=== PATIENT | male | born 1990 | race Caucasian/White ===

== ENCOUNTER 2017-02-10 12:22 | Inpatient (IN) | payer OTHER ==
[2017-02-10 13:51] VITALS: BMI 24.4
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
[2017-02-10] MEDS ORDERED: LOPERAMIDE HCL 2 MG CAPSULE PO PRN (18:12)
[2017-02-10] MEDS ORDERED: diphenhydrAMINE HCL 50 MG CAPSULE PO PRN (18:12)
[2017-02-10] MEDS ORDERED: chlordiazePOXIDE HCL 25 MG CAPSULE PO ONE (18:12)
[2017-02-10] MEDS ORDERED: NICOTINE POLACRILEX 2 MG GUM BC PRN (18:12)
[2017-02-10] MEDS ORDERED: METHADONE HCL 10 MG TABLET (FOR DETOX USE ONLY) PO ONE ×2 (18:12→23:00)
[2017-02-10] MEDS ORDERED: IBUPROFEN 400 MG TABLET (FP) PO PRN (18:12)
[2017-02-10] MEDS ORDERED: MAGNESIUM HYDROX 2400MG/30ML ORAL SUSPENSION 30 ML CUP PO PRN (18:12)
[2017-02-10] MEDS ORDERED: chlordiazePOXIDE HCL 25 MG CAPSULE PO PRN (18:12)
[2017-02-10] MEDS ORDERED: MAG HYDROX/AL HYDROX/SIMETH 30 ML UNIT-DOSE CUP PO PRN (18:12)
[2017-02-10] MEDS ORDERED: MAGNESIUM CITRATE 300 ML BOTTLE PO PRN (18:12)
[2017-02-10] MEDS ORDERED: hydrOXYzine PAMOATE 50 MG CAPSULE (FP) PO PRN (18:12)
[2017-02-10] MEDS ORDERED: guaiFENesin/D-METHORPHAN HB 10 ML UNIT-DOSE CUPS PO PRN (18:12)
[2017-02-10] MEDS ORDERED: MENTHOL/PHENOL 1 EACH UD MM PRN (18:12)
[2017-02-10] MEDS ORDERED: P-EPHED 60MG/TRIPROLIDI 2.5MG TABLET PO PRN (18:12)
[2017-02-10] MEDS ORDERED: ACETAMINOPHEN 325 MG TABLET (FP) PO PRN (18:12)
[2017-02-10] MEDS: NICOTINE 21 MG/24 HOURS TOPICAL PATCH TD SCH (19:48)
[2017-02-10 21:57] LABS: URINE APPEARANCE CLEAR; URINE BILIRUBIN NEGATIVE (NEGATIVE); URINE BLOOD NEGATIVE (NEGATIVE); URINE COLOR LT. YELLOW; URINE GLUCOSE (UA) NEGATIVE (NEGATIVE); URINE KETONE TRACE (NEGATIVE); URINE LEUK ESTERASE NEGATIVE (NEGATIVE); URINE NITRITE NEGATIVE (NEGATIVE); URINE PROTEIN NEGATIVE (NEGATIVE); URINE UROBILINOGEN 0.2 mg/dL (0.2-1.0)
[2017-02-10] MEDS: BACITRACIN 0.9 GM PACKET TP SCH (22:23)
[2017-02-10] MEDS: chlordiazePOXIDE HCL 25 MG CAPSULE PO SCH (22:23)
[2017-02-10] MEDS: THIAMINE HCL 100 MG TABLET (FP) PO SCH (22:23)
[2017-02-11] MEDS: chlordiazePOXIDE HCL 25 MG CAPSULE PO SCH ×4 (05:14→22:19)
--- NOTE | 2017-02-11 09:50 | EKG ---
Test Reason : Blood Pressure : / mmHG Vent. Rate : 063 BPM Atrial Rate : 063 BPM P-R Int : 130 ms QRS Dur : 110 ms QT Int : 390 ms P-R-T Axes : 054 065 022 degrees QTc Int : 399 ms NORMAL SINUS RHYTHM WITH SINUS ARRHYTHMIA NORMAL ECG NO PREVIOUS ECGS AVAILABLE Confirmed by MD JENNIFER, ERIC ([id number]) on 02/11/2017 9:50:02 AM Referred By: Confirmed By:ERIC RODRIGUEZ MD
[2017-02-11] MEDS ORDERED: METHADONE HCL 10 MG TABLET (FOR DETOX USE ONLY) PO SCH (10:00)
[2017-02-11] MEDS: BACITRACIN 0.9 GM PACKET TP SCH ×2 (10:20→22:18)
[2017-02-11] MEDS: PRENATAL VITAMINS W/ FOLIC ACID TABLET (FP) PO SCH (10:20)
[2017-02-11] MEDS: NICOTINE 21 MG/24 HOURS TOPICAL PATCH TD SCH (10:23)
[2017-02-11 10:31] LABS: MCHC 33.9 g/dl (32.0-35.9); MEAN CELL VOLUME 91.4 fl (80-96); MEAN PLT VOLUME 7.4 fl (7.5-11.1); PLATELET COUNT 225 K/MM3 (134-434); RDW 12.4 % (11.9-15.9); WHITE BLOOD COUNT 8.4 K/mm3 (4.0-10.0)
[2017-02-11 11:38] LABS: ALBUMIN 3.6 g/dl (3.4-5.0); ALK PHOS 81 U/L (45-117); ANION GAP 5 (8-16); BILIRUBIN,TOTAL 0.4 mg/dL (0.2-1.0); CALCIUM 8.7 mg/dL (8.5-10.1); CO2 29 mmol/L (21-32); CREATININE 0.8 mg/dL (0.7-1.3); GLUCOSE,RANDOM 86 mg/dL (74-106); SGOT/AST 12 U/L (15-37); SGPT/ALT 17 U/L (12-78); TOT PROT 6.4 g/dl (6.4-8.2)
--- NOTE | 2017-02-11 12:24 | PN ---
[facility] CIWA - CIWA Score Nausea/Vomitin Muscle Tremors: 3 Anxiety: 3 Agitation: 3 Paroxysmal Sweats: 1-Minimal Palms Moist Orientation: 0-Oriented Tacttile Disturbances: 1-Very Mild Itch/Numbness Auditory Disturbances: 1-Very Mild Visual Disturbances: 1-Very Mild Sensitivity Headache: 2-Mild CIWA-Ar Total Score: 18 BHS COWS - Scale Resting Pulse: 1= [place] 81-100 Sweatin= Chills/Flushing Restless Observation: 3= Extraneous Movement Pupil Size: 1= Pupils >than Normal Bone or Joint Aches: 2= Severe Diffuse Aches Runny Nose/ Eye Tearin= Runny Nose/Eyes GI Upset > 30mins: 3= Vomiting/Diarrhea Tremor Observation of Outstretched Hands: 2= Slight Tremor Visible Yawning Observation: 1= 1-2x During Session Anxiety or Irritability: 2=Irritable/Anxious Goose Flesh Skin: 0=Smooth Skin COWS Score: 18 [facility] Progress Note (SOAP) Subjective: alert,irritable,anxious,interrupted sleep,tremor,pain in the body and back Objective: 02/11/17 12:22 Vital Signs Temperature 97.9 F 02/11/17 10:54 Pulse Rate 90 02/11/17 10:54 Respiratory Rate 18 02/11/17 10:54 Blood Pressure 120/81 02/11/17 10:54 O2 Sat by Pulse Oximetry (%) ekg nsr with sinus arrhythmia Laboratory Last Values WBC 8.4 K/mm3 (4.0-10.0) 02/11/17 08:00 RBC 4.17 M/mm3 (4.00-5.60) 02/11/17 08:00 Hgb 12.9 GM/dL (11.7-16.9) 02/11/17 08:00 Hct 38.0 % (35.4-49) 02/11/17 08:00 MCV 91.4 fl (80-96) 02/11/17 08:00 MCH 31.0 pg (25.7-33.7) 02/11/17 08:00 MCHC 33.9 g/dl (32.0-35.9) 02/11/17 08:00 RDW 12.4 % (11.9-15.9) 02/11/17 08:00 Plt Count 225 K/MM3 (134-434) 02/11/17 08:00 MPV 7.4 fl (7.5-11.1) L 02/11/17 08:00 Sodium 138 mmol/L (136-145) 02/11/17 08:00 Potassium 3.9 mmol/L (3.5-5.1) 02/11/17 08:00 Chloride 104 mmol/L (98-107) 02/11/17 08:00 Carbon Dioxide 29 mmol/L (21-32) 02/11/17 08:00 Anion Gap 5 (8-16) L 02/11/17 08:00 BUN 9 mg/dL (7-18) 02/11/17 08:00 Creatinine 0.8 mg/dL (0.7-1.3) 02/11/17 08:00 Creat Clearance w eGFR > 60 (>60) 02/11/17 08:00 Random Glucose 86 mg/dL (74-106) 02/11/17 08:00 Calcium 8.7 mg/dL (8.5-10.1) 02/11/17 08:00 Total Bilirubin 0.4 mg/dL (0.2-1.0) 02/11/17 08:00 AST 12 U/L (15-37) L 02/11/17 08:00 ALT 17 U/L (12-78) 02/11/17 08:00 Alkaline Phosphatase 81 U/L (45-117) 02/11/17 08:00 Total Protein 6.4 g/dl (6.4-8.2) 02/11/17 08:00 Albumin 3.6 g/dl (3.4-5.0) 02/11/17 08:00 Urine Color Lt. yellow 02/10/17 21:46 Urine Appearance Clear 02/10/17 21:46 Urine pH 6.0 (5.0-8.0) 02/10/17 21:46 Ur Specific [place] 1.025 (1.005-1.025) 02/10/17 21:46 Urine Protein Negative (NEGATIVE) 02/10/17 21:46 Urine Glucose (UA) Negative (NEGATIVE) 02/10/17 21:46 Urine Ketones Trace (NEGATIVE) H 02/10/17 21:46 Urine Blood Negative (NEGATIVE) 02/10/17 21:46 Urine Nitrite Negative (NEGATIVE) 02/10/17 21:46 Urine Bilirubin Negative (NEGATIVE) 02/10/17 21:46 Urine Urobilinogen 0.2 mg/dL (0.2-1.0) 02/10/17 21:46 labs pending Assessment: 02/11/17 12:24 withdrawal symptom Plan: continue detox
[2017-02-11 12:45] LABS: HIV 1 & 2 AB NEGATIVE; HIV 1 AGp24 NEGATIVE
[2017-02-11] MEDS: LIDOCAINE 5% TOPICAL PATCH TP SCH ×2 (13:00→13:30)
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
[2017-02-11] MEDS ORDERED: LIDOCAINE PATCH REMOVAL MC SCH (22:00)
[2017-02-11] MEDS: THIAMINE HCL 100 MG TABLET (FP) PO SCH (22:18)
[2017-02-12] MEDS: chlordiazePOXIDE HCL 25 MG CAPSULE PO SCH ×2 (06:22→10:19)
--- NOTE | 2017-02-12 09:05 | PN ---
S CIWA - CIWA Score Nausea/Vomitin Muscle Tremors: 3 Anxiety: 3 Agitation: 3 Paroxysmal Sweats: 1-Minimal Palms Moist Orientation: 0-Oriented Tacttile Disturbances: 1-Very Mild Itch/Numbness Auditory Disturbances: 1-Very Mild Visual Disturbances: 0-None Headache: 2-Mild CIWA-Ar Total Score: 17 BHS COWS - Scale Resting Pulse: 0= [place] 80 or Below Sweatin= Chills/Flushing Restless Observation: 3= Extraneous Movement Pupil Size: 1= Pupils >than Normal Bone or Joint Aches: 2= Severe Diffuse Aches Runny Nose/ Eye Tearin= Runny Nose/Eyes GI Upset > 30mins: 2= Nausea/Diarrhea Tremor Observation of Outstretched Hands: 2= Slight Tremor Visible Yawning Observation: 1= 1-2x During Session Anxiety or Irritability: 2=Irritable/Anxious Goose Flesh Skin: 0=Smooth Skin COWS Score: 16 S Progress Note (SOAP) Subjective: ALERT,IRRITABLE,ANXIOUS,INTERRUPTED SLEEP,TREMOR,PAIN IN THE BODY Objective: 02/12/17 09:04 Vital Signs Temperature 97.5 F L 02/12/17 06:00 Pulse Rate 69 02/12/17 06:00 Respiratory Rate 18 02/12/17 06:00 Blood Pressure 111/66 02/12/17 06:00 O2 Sat by Pulse Oximetry (%) Laboratory Last Values WBC 8.4 K/mm3 (4.0-10.0) 02/11/17 08:00 RBC 4.17 M/mm3 (4.00-5.60) 02/11/17 08:00 Hgb 12.9 GM/dL (11.7-16.9) 02/11/17 08:00 Hct 38.0 % (35.4-49) 02/11/17 08:00 MCV 91.4 fl (80-96) 02/11/17 08:00 MCH 31.0 pg (25.7-33.7) 02/11/17 08:00 MCHC 33.9 g/dl (32.0-35.9) 02/11/17 08:00 RDW 12.4 % (11.9-15.9) 02/11/17 08:00 Plt Count 225 K/MM3 (134-434) 02/11/17 08:00 MPV 7.4 fl (7.5-11.1) L 02/11/17 08:00 Sodium 138 mmol/L (136-145) 02/11/17 08:00 Potassium 3.9 mmol/L (3.5-5.1) 02/11/17 08:00 Chloride 104 mmol/L (98-107) 02/11/17 08:00 Carbon Dioxide 29 mmol/L (21-32) 02/11/17 08:00 Anion Gap 5 (8-16) L 02/11/17 08:00 BUN 9 mg/dL (7-18) 02/11/17 08:00 Creatinine 0.8 mg/dL (0.7-1.3) 02/11/17 08:00 Creat Clearance w eGFR > 60 (>60) 02/11/17 08:00 Random Glucose 86 mg/dL (74-106) 02/11/17 08:00 Calcium 8.7 mg/dL (8.5-10.1) 02/11/17 08:00 Total Bilirubin 0.4 mg/dL (0.2-1.0) 02/11/17 08:00 AST 12 U/L (15-37) L 02/11/17 08:00 ALT 17 U/L (12-78) 02/11/17 08:00 Alkaline Phosphatase 81 U/L (45-117) 02/11/17 08:00 Total Protein 6.4 g/dl (6.4-8.2) 02/11/17 08:00 Albumin 3.6 g/dl (3.4-5.0) 02/11/17 08:00 Urine Color Lt. yellow 02/10/17 21:46 Urine Appearance Clear 02/10/17 21:46 Urine pH 6.0 (5.0-8.0) 02/10/17 21:46 Ur Specific [place] 1.025 (1.005-1.025) 02/10/17 21:46 Urine Protein Negative (NEGATIVE) 02/10/17 21:46 Urine Glucose (UA) Negative (NEGATIVE) 02/10/17 21:46 Urine Ketones Trace (NEGATIVE) H 02/10/17 21:46 Urine Blood Negative (NEGATIVE) 02/10/17 21:46 Urine Nitrite Negative (NEGATIVE) 02/10/17 21:46 Urine Bilirubin Negative (NEGATIVE) 02/10/17 21:46 Urine Urobilinogen 0.2 mg/dL (0.2-1.0) 02/10/17 21:46 RPR Titer Nonreactive (NONREACTIVE) 02/11/17 08:00 Hepatitis C Antibody <0.1 s/co ratio (0.0-0.9) 02/11/17 08:00 HIV 1&2 Antibody Screen Negative 02/11/17 08:00 HIV P24 Antigen Negative 02/11/17 08:00 Assessment: 02/12/17 09:04 WITHDRAWAL SYMPTOM Plan: CONTINUE DETOX
[2017-02-12] MEDS ORDERED: METHADONE HCL 5 MG TABLET (FOR DETOX USE ONLY) PO SCH (10:00)
[2017-02-12] MEDS: BACITRACIN 0.9 GM PACKET TP SCH (10:19)
[2017-02-12] MEDS: PRENATAL VITAMINS W/ FOLIC ACID TABLET (FP) PO SCH (10:19)
[2017-02-12] MEDS: NICOTINE 21 MG/24 HOURS TOPICAL PATCH TD SCH (10:20)
--- NOTE | 2017-02-12 14:13 | PN ---
S Progress Note Note: PATIENT DID NOT WANT TO COMPLETE TREATMENT,STATED HE HAS APPOINTMENT FOR METHADONE MAINTENANCE EVALUATION TOMORROW,SIGNED RELEASE AMMari,SEEN BY COUNSELOR
--- NOTE | 2017-02-12 14:19 | DS ---
[facility] Detox Discharge Summary Admission Date: 02/10/17 Discharge Date: 02/12/17 - History Present History: Alcohol Dependence, Cannabis Dependence, Cocaine Dependence, Opioid Dependence Additional Comments: PATIENT DID NOT WANT TO COMPLETE TREATMENT,STATED HAS APPOINTMENT FOR EVALUATION FOR METHADONE MAINTENANCE PROGRAM,SEEN BY COUNSELOR,SIGNED RELEASE AMA Pertinent Past History: NICOTINE DEPENDENCE - Physical Exam Results Vital Signs: Vital Signs Temperature 98.1 F 02/12/17 09:51 Pulse Rate 98 H 02/12/17 09:51 Respiratory Rate 18 02/12/17 09:51 Blood Pressure 125/69 02/12/17 09:51 O2 Sat by Pulse Oximetry (%) Pertinent Admission Physical Exam Findings: WITHDRAWAL SYMPTOM - Medication Discharge Medications: Ambulatory Orders NK [No Known Home Medication] 02/10/17 - Diagnosis (1) Opioid dependence with withdrawal Current Visit: Yes Status: Acute (2) Alcohol dependence with uncomplicated withdrawal Current Visit: Yes Status: Acute (3) Cannabis dependence, uncomplicated Current Visit: Yes Status: Acute (4) Cocaine dependence, uncomplicated Current Visit: Yes Status: Acute (5) Substance induced mood disorder Current Visit: Yes Status: Acute (6) Nicotine dependence Current Visit: Yes Status: Chronic Qualifiers: Nicotine product type: cigarettes Substance use status: uncomplicated Qualified Code(s): F17.210 - Nicotine dependence, cigarettes, uncomplicated - AMA Did Patient Leave Against Medical Advice: Yes
[2017-02-12 14:27] VITALS: BP 121/56; PULSE 76; TEMP 97.9
[2017-02-12] MEDS ORDERED: chlordiazePOXIDE 5 MG CAPSULE PO SCH (23:00)
[2017-02-13] MEDS ORDERED: chlordiazePOXIDE HCL 10 MG CAPSULE PO SCH (23:00)
[2017-02-14] MEDS ORDERED: METHADONE HCL 10 MG TABLET (FOR DETOX USE ONLY) PO SCH (10:00)
[2017-02-15] MEDS ORDERED: METHADONE HCL 5 MG TABLET (FOR DETOX USE ONLY) PO SCH (06:00)
== END 2017-02-12 14:07 | disposition left against medical advice (07) | DRG 770 ==
LOC: YASAS 12:22 → Y6N 19:22
PROVIDERS: ADMIT Internal Medicine; ATTEND Internal Medicine
PROC: HZ2ZZZZ Detoxification Services for Substance Abuse Treatment (ICD-10-PCS; principal; 2017-02-10)
DX: F11.23 Opioid dependence with withdrawal (principal); F10.230 Alcohol dependence with withdrawal, uncomplicated; F14.20 Cocaine dependence, uncomplicated; F12.20 Cannabis dependence, uncomplicated; F17.210 Nicotine dependence, cigarettes, uncomplicated; F19.24 Other psychoactive substance dependence with psychoactive substance-induced mood disorder; S01.81XA Laceration without foreign body of other part of head, initial encounter; Y04.0XXA Assault by unarmed brawl or fight, initial encounter; Y93.89 Activity, other specified; Y92.89 Other specified places as the place of occurrence of the external cause
CPT/HCPCS: 36415; 80053; 81003; 85027; 86593; 86803; 87389; 93005; 93010